=== PATIENT | male | born 1985 | race Caucasian/White ===

== ENCOUNTER 2016-07-24 12:41 | Emergency (ER) | payer BC, OTHER ==
[2016-07-24 12:53] VITALS: BP 131/90; PULSE 84; TEMP 97.9; BMI 22.5
[2016-07-24] MEDS ORDERED: IBUPROFEN 400 MG TABLET (FP) PO ONE ×2 (14:02→14:14)
--- NOTE | 2016-07-24 14:30 | PDOC ---
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 Denies instability 07/24/16 15:38 07/24/16 17:35 07/24/16 17:35 Occurred: reports: just prior to arrival Severity: reports: moderate Pain Location: reports: upper extremity (right knee) Method of Injury: Yes: fall (slipped and fell onto ) Modifying Factors: improves with: None Loss of Consciousness: no loss of consciousness Associated Symptoms (Fall): denies symptoms Past History - Travel Traveled outside of the country in the last 30 days: No Close contact w/someone who was outside of country & ill: No - Past Medical History Allergies/Adverse Reactions: Allergies Allergy/AdvReac Type Severity Reaction Status Date / Time No Known Allergies Allergy Verified 07/24/16 12:53 Home Medications: Ambulatory Orders NK [No Known Home Medication] 12/08/13 Other medical history: PT DENIES MEDICAL HX - Psycho/Social/Smoking Cessation Hx Anxiety: No Suicidal Ideation: No Smoking History: Never smoked Number of Cigarettes Smoked Daily: 0 Hx Alcohol Use: No Drug/Substance Use Hx: No Substance Use Type: None Trauma Specific PMHX - Complaint Specific PMHX Back Injury: No Neck Injury: No Review of Systems - Review of Systems Able to Perform ROS?: Yes Is the patient limited Occitan proficient: Yes Constitutional: Yes: Symptoms Reported, See HPI, Malaise Respiratory: No: Symptoms reported : No: Symptoms Reported Musculoskeletal: Yes: Symptoms Reported, See HPI, Joint Pain, Joint Swelling Neurological: Yes: See HPI. No: Symptoms reported All Other Systems: Reviewed and Negative *Physical Exam - Vital Signs Last Vital Signs Temp Pulse Resp BP Pulse Ox 97.9 F 84 18 131/90 98 07/24/16 12:50 07/24/16 12:50 07/24/16 12:50 07/24/16 12:50 07/24/16 12:50 - Physical Exam General Appearance: Yes: Appropriately Dressed, Apparent Distress HEENT: positive: KIRT, Normal ENT Inspection, TMs Normal, Pharynx Normal Neck: positive: Supple. negative: Tender, Lymphadenopathy (R), Lymphadenopathy (L) Respiratory/Chest: positive: Lungs Clear, Normal Breath Sounds Gastrointestinal/Abdominal: positive: Soft Extremity: positive: Normal Capillary Refill, Swelling. negative: Normal Inspection, Normal Range of Motion (painful flexion past 20, patella is mobile without crepitus or step-offs, has tenderness reproduced along the medial and lateral aspect of knee without instability. Neurovascular intact distal to injury. Has soft tissue swelling and ecchymoses inferior to patella at tibial plateau.) Integumentary: positive: Normal Color, Pale Neurologic: positive: magistrate II-XII NML intact, Fully Oriented, Alert, Normal Mood/ Affect, Normal Response, Motor Strength 09/13 ED Treatment Course - RADIOLOGY Radiology Studies Ordered: Category Date Time Status KNEE 3 POS-RIGHT [RAD] Stat Radiology 07/24/16 14:01 Ordered - Medications Given in the ED: ED Medications Discontinued Medications Generic Name Dose Route Start Last Admin Trade Name Kevenq PRN Reason Stop Dose Admin Ibuprofen 400 mg 07/24/16 14:02 07/24/16 14:21 Motrin - PO 07/24/16 14:03 400 mg ONCE ONE Administration Progress Note - Progress Note Progress Note: Right knee contusion, sprain. Will treat with immobilizer although patient unwilling to where now is still is on duty. *DC/Admit/Observation/Transfer Diagnosis at time of Disposition: Right knee sprain Qualifiers: Encounter type: initial encounter Involved ligament of knee: unspecified ligament Qualified Code(s): S83.91XA - Sprain of unspecified site of right knee , initial encounter - Discharge Dispostion Disposition: HOME Condition at time of disposition: Stable Admit: No - Referrals Referrals: Ranjeet Cutler MD [Staff Physician] - - Patient Instructions Printed Discharge Instructions: DI for Knee Sprain Additional Instructions: Rest, ice to area on and off for 15 minutes 4-6 times a day Avoid heavy lifting or exercise until pain and swelling is resolved or until further directed Keep area highly elevated to reduce swelling Use splints/Dalton wrap as directed Followup with orthopedist in one to 2 days if not improving, if significantly improved may wait one week for followup with orthopedist May use ibuprofen 2-200 mg tablets every 6 hours as needed for pain - Post Discharge Activity Work/School Note: Back to Work
== END 2016-07-24 15:37 | disposition home or self-care (01) ==
LOC: JERFT 12:41
PROC: 2W3QX1Z Immobilization of Right Lower Leg using Splint (ICD-10-PCS; principal; 2016-07-24)
DX: S83.91XA Sprain of unspecified site of right knee, initial encounter (principal); W10.9XXA Fall (on) (from) unspecified stairs and steps, initial encounter; Y93.89 Activity, other specified; Y92.9 Unspecified place or not applicable; Y99.0 Civilian activity done for income or pay
CPT/HCPCS: 73562-TC-RT; 99281-25

== ENCOUNTER 2018-11-28 11:48 | Emergency (ER) | payer OTHER ==
[2018-11-28 11:57] VITALS: BP 130/68; PULSE 81; TEMP 98; BMI 24.3
[2018-11-28] MEDS ORDERED: BACITRACIN 0.9 GM PACKET TP ONE (12:34)
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
== END 2018-11-28 12:41 | disposition home or self-care (01) ==
LOC: JERFT 11:48
DX: T14.8XXA Other injury of unspecified body region, initial encounter (principal); Y35.891A Legal intervention involving other specified means, law enforcement official injured, initial encounter; Y93.89 Activity, other specified; Y92.89 Other specified places as the place of occurrence of the external cause; Y99.0 Civilian activity done for income or pay
CPT/HCPCS: 99281-25